=== PATIENT | male | born 1950 ===

== ENCOUNTER 2021-01-02 16:04 | Emergency (ER) | payer SELFPAY ==
[~2021-01-02] VITALS: Ht 175.3 cm; Wt 80.0 kg
[~2021-01-02 16:04] MED LIST: 0.9 % SODIUM CHLORIDE 10 ML VIAL ONE; DOBUTamine/D5W 500mg/250ml premix IV ONE; atropine 0.1 mg/ml 5ml syringe ONE; calcium chloride 100 MG/1 ML inj IV ONE; dextrose 50%-water 50ml dispensing syringe IV ONE; epiNEPHrine 0.1mg/ml 10ml syringe ONE; magnesium sulf 1 GM/2 ML ONE; sod chloride 0.9% 10ml flush syringe IV ONE; sodium bicarbonate (8.4%) 1 mEq/ml syringe ONE
[2021-01-02] MEDS ORDERED: normal saline 1000ml 1,000 ML IV ONE (16:30)
[2021-01-02 16:31] LABS: BASOPHILS # (AUTO) 0.1 X10'3 (0-0.2); BASOPHILS % (AUTO) 0.6 % (0-1); EOSINOPHILS % (AUTO) 0.1 % (0-6)
[2021-01-02 16:32] LABS: LYMPHOCYTES # (AUTO) 4.7 X10'3 (1.1-4.8); LYMPHOCYTES % (AUTO) 31.2 % (21-51); MEAN PLATELET VOLUME 8.9 FL (7.4-10.4); MONOCYTES # (AUTO) 1.2 X10'3 (0-0.9); MONOCYTES % (AUTO) 7.9 % (2-12); NEUTROPHILS % (AUTO) 60.2 % (42-75); PLATELET COUNT 353 X10'3 (140-440)
[2021-01-02 16:41] VITALS: BP 54/39
[2021-01-02] MEDS ORDERED: NORepinephrine 8mg/ 250ml NS 250 ML IV ONE (16:41)
[2021-01-02 16:49] LABS: D-DIMER 4.24 MG/L FEU (0-0.50); PARTIAL THROMBOPLASTIN TIME 36 SECONDS (22-32)
[2021-01-02 16:55] LABS: ALBUMIN 2.2 G/DL (3.4-5.0); ALBUMIN/GLOBULIN RATIO 0.7 (1.1-1.5); ALKALINE PHOSPHATASE 181 IU/L (46-116); ANION GAP 22 (8-16); BILIRUBIN,TOTAL 2.3 MG/DL (0.1-1.0); BLOOD UREA NITROGEN 40 MG/DL (7-18); C-REACTIVE PROTEIN 3.91 MG/DL (0.0-0.5); CALCIUM 8.1 MG/DL (8.5-10.1); CHLORIDE 107 MMOL/L (99-107); CREATININE 2.67 MG/DL (0.60-1.10); GLUCOSE 76 MG/DL (70-104); MAGNESIUM 2.5 MG/DL (1.5-2.4); SODIUM 146 MMOL/L (135-145); TOTAL CARBON DIOXIDE 17.2 MMOL/L (24-32); TOTAL PROTEIN 5.3 G/DL (6.4-8.2); eGFR 24 ML/MIN
[2021-01-02 16:59] LABS: ETHANOL < 0.010 GM/DL (0.0-0.010)
[2021-01-02 17:03] LABS: MEAN CORPUSCULAR HGB CONC 30.6 g/dL (33.0-36.5); MEAN CORPUSCULAR VOLUME 65.5 FL (78-98); RED BLOOD COUNT 3.16 X10'6 (4.70-6.10); RED CELL DISTRIBUTION WIDTH 20.5 % (11.5-14.5)
[2021-01-02 17:05] LABS: HEMATOCRIT 20.7 % (42.0-52.0); HEMOGLOBIN 6.3 g/dl (14.0-17.9)
[2021-01-02 17:13] LABS: ASPARTATE AMINO TRANSFERASE 2670 U/L (10-37)
[2021-01-02 17:15] LABS: ABG PCO2 (T) 68.5 mmHg (35.0-48.0); ABG PO2 (T) 30.8 mmHg (75.0-100.0); ALLEN'S TEST POSITIVE; FLOW 15 L/min; PATIENT TEMPERATURE 40.3; TOTAL HEMOGLOBIN < 4.7 G/dl (14.0-18.0)
[2021-01-02 17:28] LABS: ALANINE AMINOTRANSFERASE 1246 U/L (12-78)
[2021-01-02 17:41] LABS: URINE AMPHETAMINE SCREEN POSITIVE (Neg); URINE BARBITUATE SCREEN NEGATIVE (Neg); URINE BENZODIAZEPINES SCREEN NEGATIVE (Neg); URINE CANNABINOID SCREEN NEGATIVE (Neg); URINE COCAINE SCREEN NEGATIVE (Neg); URINE METHADONE SCREEN NEGATIVE (Neg); URINE OPIATE SCREEN POSITIVE (Neg); URINE PHENCYCLIDINE SCREEN NEGATIVE (Neg)
[2021-01-02 17:51] LABS: CLARITY,URINE SLIGHTLY CLOUDY (Clear); COLOR,URINE YELLOW (Yellow); GLUCOSE, URINE NEGATIVE (Neg); KETONES,URINE TRACE mg/dl (Neg); LEUKOCYTE ESTERASE ,URINE NEGATIVE (Neg); NITRITES, URINE NEGATIVE (Neg); OCCULT BLOOD,URINE NEGATIVE (Neg); PROTEIN,URINE 30 mg/dl (Neg); UA COLLECTION TYPE STRAIGHT CATH; UROBILINOGEN,URINE 0.2 E.U/dL (0.2-1.0)
[2021-01-02 17:57] LABS: BACTERIA,URINE 2+ /HPF (Neg)
[2021-01-02 17:58] LABS: AMORPHOUS URATES 1+; MUCUS STRANDS MODERATE /LPF (Neg); RENAL CELLS, URINE MODERATE /HPF; SQUAMOUS EPITHELIAL CELL,UR FEW /LPF (FEW); TRANSITIONAL EPI CELLS,URINE MODERATE /HPF
[2021-01-02 17:59] LABS: COARSE GRANULAR CAST 0-3 /LPF (NEGATIVE)
--- NOTE | 2021-01-02 19:00 | NUR ---
[facility] [employer] HAS BEEN CALLED BY [facility] AND IS WORKING ON GETTING INFORMATION FOR RELATIVES SINCE WE HAVE NONE; [facility] HAS BEEN NOTIFIED WELL; WILL CTM AND ASSESS FOR RELEASE FROM [employer].
--- NOTE | 2021-01-02 20:43 | NUR ---
CALLED [facility] TO CHECK ON STATUS; THEY ARE CONTACTING REPAIR DEPARTMENT SUPERVISOR AGAIN.
--- NOTE | 2021-01-02 20:53 | NUR ---
TE CALLED AND STATES [facility] HAS RELEASED PT AND HE HAS CONTACTED NEXT OF [facility].
--- NOTE | 2021-01-02 21:00 | NUR ---
KOBI AND GLYNN MEJIAS NOTIFIED FOR PICKUP.
--- NOTE | 2021-01-02 21:47 | NUR ---
SPOKE WITH [employer] CONFIRMING WHERE PT IS GOING TO BE TRANSFERRED TO/RELEASED TO = SORAYA MEJIAS
[2021-01-02 22:18] LABS: TOTAL CELLS COUNTED 100
[2021-01-02 22:31] LABS: PLATELET ESTIMATE NORMAL
[2021-01-02 22:32] LABS: ANISOCYTOSIS 3+; LARGE PLATELETS FEW; MICROCYTOSIS 1+
[2021-01-02 22:34] LABS: ELLIPTOCYTES 1+
[2021-01-02 22:35] LABS: HYPOCHROMASIA 2+
[2021-01-02 22:36] LABS: POIKILOCYTOSIS 1+; POLYCHROMASIA FEW
== END 2021-01-03 00:09 ==
LOC: ER 16:04 → EDBD 16:04 → ER 01-03 00:09
DX: I46.9 Cardiac arrest, cause unspecified (principal); Z20.822 Contact with and (suspected) exposure to COVID-19; F15.10 Other stimulant abuse, uncomplicated; D64.9 Anemia, unspecified; R50.9 Fever, unspecified; R53.1 Weakness; I31.3 Pericardial effusion (noninflammatory); I48.91 Unspecified atrial fibrillation; I25.10 Atherosclerotic heart disease of native coronary artery without angina pectoris; J44.9 Chronic obstructive pulmonary disease, unspecified; E11.9 Type 2 diabetes mellitus without complications; F41.9 Anxiety disorder, unspecified; F32.9 Major depressive disorder, single episode, unspecified
CPT/HCPCS: 31500; 36415; 36600; 71045; 80053; 80305; 80320; 81001; 82803; 82948; 83735; 83880; 84145; 84443; 84484; 85007; 85018; 85025; 85379; 85610; 85730; 86140; 87635; 92950; 93005; 94002; 94799; 99291; C9803; J0171; J0461; J1250; J3475